=== PATIENT | female | born 1975 | race Caucasian/White ===

== ENCOUNTER 2019-05-16 09:30 | Outpatient (CLI) | payer BC, SELFPAY ==
--- NOTE | 2019-05-16 09:34 | MM_ITS ---
WS: [id number] BILATERAL DIGITAL DIAGNOSTIC MAMMOGRAM MAMMOGRAPHY WITH CAD CLINICAL INFORMATION: AXILLA LYMPHADENOPATHY HISTORY: Right breast lump. Left breast soreness. History of cyst. History of lymphadenopathy. COMPARISON: May 02, 2018 January 28, 2016 TECHNIQUE: Bilateral CC, MLO, and ML views. FINDINGS: The breasts are composed of extremely dense tissue, which can limit the detection of small underlying mass lesions. Palpable marker along the superior right breast near the axillary tail and chest wall. No mammographic abnormalities in this area. Ultrasound is pending. Focal asymmetric densities periareolar and upper outer left breast new compared to previous. Ultrasou nd is pending. A few lucent centered calcifications. ULTRASOUND BREAST BILATERAL TECHNIQUE: Ultrasound bilateral breast focused area of concern. CLINICAL INFORMATION: AXILLA LYMPHADENOPATHY COMPARISON: None. FINDINGS: Ultrasound breast 9:00 position area of concern. Right breast cyst in the area of concern with some i nternal debris measuring 1.0 x 0.7 x 1.1 CM. No lesions to target for biopsy. Ultrasound left breast at the 12:00 position. Numerous left breast cysts the largest measuring 2.1 x 1.2 x 1.4 CM. The next largest measuring 1.4 x 0.9 x 1.5 cm. MM/[place] [id number] BI-RADS: 2-Benign FOLLOW UP: 1 Year Follow-up Recommend return to annual screening mammography.
== END 2019-05-16 09:31 | disposition home or self-care (01) ==
LOC: RADSHAW 09:31
PROVIDERS: Family Provider Family Medicine; PCP Family Medicine; Visit Provider Family Medicine
DX: N60.01 Solitary cyst of right breast (principal); N60.02 Solitary cyst of left breast; R59.0 Localized enlarged lymph nodes
CPT/HCPCS: 76642; 77066

== ENCOUNTER 2020-07-04 10:44 | Outpatient (CLI) | payer OTHER, SELFPAY ==
--- NOTE | 2020-07-04 10:46 | MM_ITS ---
WS: [id number] BILATERAL SCREENING DIGITAL MAMMOGRAM WITH CAD HISTORY: SCREENING COMPARISON: 05/16/2019 and 05/02/2018 Bilateral CC and MLO views submitted. Computer aided detection analyzed. Breast composition: The breasts are extremely dense, which lowers the sensitivity of mammography. No suspicious masses, microcalcifications or architectural distortion. Very dense breast parenchyma. No nipple retraction. Benign calcifications in each breast. MM/[place] [id number] IMPRESSION: BI-RADS: 2-Benign FOLLOW UP: 1 Year Follow-up
== END 2020-07-04 10:45 | disposition home or self-care (01) ==
LOC: RADSHAW 10:45
PROVIDERS: PCP Family Medicine; Visit Provider Family Medicine
DX: Z12.31 Encounter for screening mammogram for malignant neoplasm of breast (principal)
CPT/HCPCS: 77067

== ENCOUNTER 2021-07-01 14:19 | Outpatient (CLI) | payer OTHER, SELFPAY ==
--- NOTE | 2021-07-01 14:56 | US_ITS ---
WS: [id number] ULTRASOUND ABDOMEN LIMITED CLINICAL INFORMATION: RUQ ABDOMINAL PAIN COMPARISON: None. FINDINGS: Liver Size: Normal. Craniocaudal length: 11.8 cm. Echogenicity: Normal. Surface nodularity: None. Mass (size and location): None. Bile ducts Intrahepatic ducts: Normal. Common bile duct diameter: 0.5 cm. Gallbladder Normal. Gallstones: None. Gallbladder sludge: None. Gallbladder wall thickening: None. Pericholecystic fluid: None. Sonographic Sesay sign: Absent. Pancreas Normal as visualized. Right kidney: Normal. Hydronephrosis: None. Size: 7.7 cm x 4.6 cm x 3.9 cm. Abdominal aorta and IVC Visualized portions are normal. Ascites: None. US/US abdomen limited [id number] IMPRESSION: 1. Normal liver. No intrahepatic biliary ductal dilatation. 2. Normal gallbladder. No cholelithiasis. 3. No hydronephrosis in RIGHT kidney.
== END 2021-07-01 14:20 | disposition home or self-care (01) ==
PROVIDERS: PCP Family Medicine; Visit Provider Family Medicine
DX: R10.11 Right upper quadrant pain (principal)
CPT/HCPCS: 76705

== ENCOUNTER 2021-11-12 11:29 | Outpatient (CLI) | payer OTHER, SELFPAY ==
--- NOTE | 2021-11-12 11:42 | MM_ITS ---
WS: [id number] Bilateral screening 3D tomosynthesis digital mammogram, 11/12/2021 Clinical Data: Screening mammogram Comparison: 07/04/2020, 05/16/2019, 05/02/2018, 01/28/2016. Findings: The breast parenchymal pattern shows extreme density. No spiculated masses or clustered calcification s are seen. There are no secondary signs of carcinoma. MM/[place] [id number] Impression: 1. Negative bilateral mammogram unchanged. 2. Recommend annual screening mammograms. BIRADS: 1-Negative FOLLOW UP: 1 Year Follow-up The CAD unloading checker was used.
== END 2021-11-12 11:30 | disposition home or self-care (01) ==
LOC: RAD 11:30
PROVIDERS: PCP Family Medicine; Visit Provider Family Medicine
DX: Z12.31 Encounter for screening mammogram for malignant neoplasm of breast (principal)
CPT/HCPCS: 77063; 77067

== ENCOUNTER 2022-12-10 10:15 | Outpatient (CLI) | payer OTHER, SELFPAY ==
--- NOTE | 2022-12-10 10:21 | MM_ITS ---
WS: [email or web address] SCREENING DIGITAL BREAST TOMOSYNTHESIS MAMMOGRAM WITH CAD HISTORY: SCREENING COMPARISON: 05/02/2018, 05/16/2019, 11/12/2021 Bilateral CC and MLO with tomosynthesis and synthetic mammography submitted. Computer aided detection analyzed. Breast composition: The breasts are extremely dense, which lowers the sensitivity of mammography. Inc reasing calcifications in the upper outer quadrant of the RIGHT breast. These calcifications are supe rimposed within dense fibroglandular tissue. The number of calcification. Of increased. No associated soft tissue mass or distortion. There are additional scattered benign calcifications within each sergei ast. IMPRESSION: MM/[place] [id number] BI-RADS: 0-Incomplete: Need additional imaging evaluation FOLLOW UP: Need Additional Imaging LEFT BREAST: Magnification views of suspicious calcification CC and MLO. Sachin Franks
== END 2022-12-10 10:16 | disposition home or self-care (01) ==
LOC: RAD 10:15
PROVIDERS: PCP Family Medicine; Visit Provider Family Medicine
DX: Z12.31 Encounter for screening mammogram for malignant neoplasm of breast (principal)
CPT/HCPCS: 77063; 77067

== ENCOUNTER 2022-12-28 12:56 | Outpatient (CLI) | payer OTHER, SELFPAY ==
--- NOTE | 2022-12-28 13:00 | MM_ITS ---
WS: [email or web address] ADDITIONAL VIEWS RIGHT MAMMOGRAM WITH DIGITAL BREAST TOMOSYNTHESIS. RIGHT BREAST ULTRASOUND HISTORY: Calcification on mammogram - Needing follow up imaging 3D COMPARISON: 12/10/2022 and 11/12/2021 and 07/04/2020 RIGHT MAMMOGRAM: Magnification views and true ML with digital breast tomosynthesis and SM. Cluster of calcifications persists in the upper outer quadrant of the RIGHT breast. There are several calcifications. Some of these have lucent centers and are benign. Due to the tight cluster and the p leomorphic appearance of some of the calcifications, biopsy should be obtained. There is no soft tiss ue mass or distortion associated with the calcifications. During the additional imaging there is a partially obscured 5 mm mass in the anterior RIGHT breast at approximately 10:00 which needs further evaluation by ultrasound. RIGHT BREAST ULTRASOUND 2-D and color Doppler imaging submitted. Ultrasound at 10:00 in the anterior breast demonstrates a hypoechoic mass without through transmissio n. This mass measures 5 x 4 x 5 mm. This is a very superficial mass and does correspond to the mammog raphic abnormality. This is not a simple cyst. IMPRESSION: MM/[place] [id number] BI-RADS: 4-Suspicious Finding-Biopsy Should Be Considered FOLLOW UP: Biopsy Recommended 1. Stereotactic biopsy recommended of the calcifications in the upper outer patrick drant of the RIGHT breast. 2. Ultrasound-guided biopsy recommended of the hypoechoic mass in the RIGHT sergei ast at 10:00. This may be a complex cyst but has not been described on prior ma mmograms.
--- NOTE | 2022-12-28 13:49 | US_ITS ---
WS: [email or web address] ADDITIONAL VIEWS RIGHT MAMMOGRAM WITH DIGITAL BREAST TOMOSYNTHESIS. RIGHT BREAST ULTRASOUND HISTORY: Calcification on mammogram - Needing follow up imaging 3D COMPARISON: 12/10/2022 and 11/12/2021 and 07/04/2020 RIGHT MAMMOGRAM: Magnification views and true ML with digital breast tomosynthesis and SM. Cluster of calcifications persists in the upper outer quadrant of the RIGHT breast. There are several calcifications. Some of these have lucent centers and are benign. Due to the tight cluster and the p leomorphic appearance of some of the calcifications, biopsy should be obtained. There is no soft tiss ue mass or distortion associated with the calcifications. During the additional imaging there is a partially obscured 5 mm mass in the anterior RIGHT breast at approximately 10:00 which needs further evaluation by ultrasound. RIGHT BREAST ULTRASOUND 2-D and color Doppler imaging submitted. Ultrasound at 10:00 in the anterior breast demonstrates a hypoechoic mass without through transmissio n. This mass measures 5 x 4 x 5 mm. This is a very superficial mass and does correspond to the mammog raphic abnormality. This is not a simple cyst. IMPRESSION: US/US breast RT limited* [id number] BI-RADS: 4-Suspicious Finding-Biopsy Should Be Considered FOLLOW UP: Biopsy Recommended 1. Stereotactic biopsy recommended of the calcifications in the upper outer patrick drant of the RIGHT breast. 2. Ultrasound-guided biopsy recommended of the hypoechoic mass in the RIGHT sergei ast at 10:00. This may be a complex cyst but has not been described on prior ma mmograms.
== END 2022-12-28 12:57 | disposition home or self-care (01) ==
LOC: RAD 12:57
PROVIDERS: PCP Family Medicine; Visit Provider Family Medicine
DX: R92.1 Mammographic calcification found on diagnostic imaging of breast (principal); N63.11 Unspecified lump in the right breast, upper outer quadrant
CPT/HCPCS: 76642; 77061; G0279

== ENCOUNTER 2023-01-05 13:20 | Outpatient (CLI) | payer OTHER, SELFPAY ==
--- NOTE | 2023-01-05 14:45 | US_ITS ---
WS: [email or web address] ULTRASOUND-GUIDED RIGHT BREAST ASPIRATION CLINICAL INFORMATION: Abnormal mammogram - right breast biopsy COMPARISON: 12/28/2022 FINDINGS: The procedure including risks, benefits, and complications were discussed with the patient who agreed to proceed. Using sterile technique patient was prepped and draped in the usual sterile fashion RIGH T. After 1% lidocaine utilizing real-time ultrasound guidance multiple passes were made into the comp alva cystic 5 mm lesion at the 10 o'clock position superficial in location. 3 passes were made utilizi ng an 18-gauge needle, 20-gauge and 22-gauge spinal needle. A small amount of slightly bloody fluid with milky or lipomatous debris was aspirated. Cystic lesion completely resolved. Aspirated fluid an d debris will be sent for cytology. No immediate complications. No biopsy marker was placed. Cytology demonstrates benign apocrine cells with macrophages, blood, proteinaceous debris. No maligna nt cells. IMPRESSION: 1. Uncomplicated ultrasound-guided RIGHT breast complex cyst aspiration. Cyst completely resolved. 2. Cytology demonstrates no malignant cells. US/[place] [id number] BI-RADS: 2-Benign FOLLOW UP: 1 Year Follow-up
== END 2023-01-05 13:21 | disposition home or self-care (01) ==
LOC: RAD 13:20
PROVIDERS: PCP Family Medicine; Visit Provider Family Medicine
DX: N60.01 Solitary cyst of right breast (principal); R92.8 Other abnormal and inconclusive findings on diagnostic imaging of breast
CPT/HCPCS: 19000; 76942; 88112; 88305

== ENCOUNTER 2023-01-11 12:29 | Outpatient (CLI) | payer OTHER, SELFPAY ==
--- NOTE | 2023-01-11 12:55 | MM_ITS ---
WS: [email or web address] STEREOTACTIC RIGHT BREAST BIOPSY WITH VACUUM ASSISTANCE HISTORY: RT BR CALCS COMPARISON: 12/28/2022, 05/16/2019 and 05/02/2018 Procedure, risks and complications were explained to the patient. Medications and prior radiographs a re reviewed. RIGHT breast calcifications are located. Calcifications localized to the upper outer quadrant. Calcif ications are targeted in the craniocaudal projection. The skin is cleansed with ChloraPrep and anesth etized with 1% buffered lidocaine. Deeper soft tissues anesthetized with a combination of lidocaine a nd epinephrine. Small dermatome is made. Needle advanced into the RIGHT breast. Stereotactic imaging reveals appropriate positioning adjacent calcifications. Multiple vacuum-assisted core biopsies are o btained. No complications were encountered. Post biopsy specimen radiograph reveals numerous calcifications. Biopsy clip is placed in the cavity. Post imaging reveals good placement of the clip. No migration. Pressures held for approximately 15 minutes. No bleeding. Dressing applied. Patient discharged with n o complications. There is no bleeding. With any questions or complications patient is to return. IMPRESSION: 1. Uncomplicated RIGHT breast stereotactic biopsy. 2. Specimen contains numerous calcifications. MM/[place] [id number] Pathology: Benign proliferative breast disease with multifocal areas of dystrop hic calcification. No malignancy. No atypia. RECOMMENDATION: Diagnostic RIGHT mammogram 6 months.
--- NOTE | 2023-01-11 12:55 | MM_ITS ---
WS: [email or web address] STEREOTACTIC RIGHT BREAST BIOPSY WITH VACUUM ASSISTANCE HISTORY: RT BR CALCS COMPARISON: 12/28/2022, 05/16/2019 and 05/02/2018 Procedure, risks and complications were explained to the patient. Medications and prior radiographs a re reviewed. RIGHT breast calcifications are located. Calcifications localized to the upper outer quadrant. Calcif ications are targeted in the craniocaudal projection. The skin is cleansed with ChloraPrep and anesth etized with 1% buffered lidocaine. Deeper soft tissues anesthetized with a combination of lidocaine a nd epinephrine. Small dermatome is made. Needle advanced into the RIGHT breast. Stereotactic imaging reveals appropriate positioning adjacent calcifications. Multiple vacuum-assisted core biopsies are o btained. No complications were encountered. Post biopsy specimen radiograph reveals numerous calcifications. Biopsy clip is placed in the cavity. Post imaging reveals good placement of the clip. No migration. Pressures held for approximately 15 minutes. No bleeding. Dressing applied. Patient discharged with n o complications. There is no bleeding. With any questions or complications patient is to return. IMPRESSION: 1. Uncomplicated RIGHT breast stereotactic biopsy. 2. Specimen contains numerous calcifications. MM/MM surgical specimen RT Pathology: Benign proliferative breast disease with multifocal areas of dystrop hic calcification. No malignancy. No atypia. RECOMMENDATION: Diagnostic RIGHT mammogram 6 months.
--- NOTE | 2023-01-11 12:58 | MM_ITS ---
WS: [email or web address] STEREOTACTIC RIGHT BREAST BIOPSY WITH VACUUM ASSISTANCE HISTORY: RT BR CALCS COMPARISON: 12/28/2022, 05/16/2019 and 05/02/2018 Procedure, risks and complications were explained to the patient. Medications and prior radiographs a re reviewed. RIGHT breast calcifications are located. Calcifications localized to the upper outer quadrant. Calcif ications are targeted in the craniocaudal projection. The skin is cleansed with ChloraPrep and anesth etized with 1% buffered lidocaine. Deeper soft tissues anesthetized with a combination of lidocaine a nd epinephrine. Small dermatome is made. Needle advanced into the RIGHT breast. Stereotactic imaging reveals appropriate positioning adjacent calcifications. Multiple vacuum-assisted core biopsies are o btained. No complications were encountered. Post biopsy specimen radiograph reveals numerous calcifications. Biopsy clip is placed in the cavity. Post imaging reveals good placement of the clip. No migration. Pressures held for approximately 15 minutes. No bleeding. Dressing applied. Patient discharged with n o complications. There is no bleeding. With any questions or complications patient is to return. IMPRESSION: 1. Uncomplicated RIGHT breast stereotactic biopsy. 2. Specimen contains numerous calcifications. MM/[place] [id number] Pathology: Benign proliferative breast disease with multifocal areas of dystrop hic calcification. No malignancy. No atypia. RECOMMENDATION: Diagnostic RIGHT mammogram 6 months.
== END 2023-01-11 12:30 | disposition home or self-care (01) ==
LOC: RAD 12:29
PROVIDERS: PCP Family Medicine; Visit Provider Family Medicine
DX: R92.1 Mammographic calcification found on diagnostic imaging of breast (principal)
CPT/HCPCS: 19081; 77061; 88305; G0279

== ENCOUNTER 2023-07-18 11:19 | Outpatient (CLI) | payer OTHER, SELFPAY ==
--- NOTE | 2023-07-18 11:25 | MM_ITS ---
WS: [id number] DIAGNOSTIC RIGHT DIGITAL TOMOSYNTHESIS MAMMOGRAPHY WITH CAD. HISTORY: Follow up on calcifications COMPARISON: 01/11/2023, 11/12/2021 and 12/10/2022 Technique: CC, MLO and ML views. Magnification views RIGHT CC. Breast composition: The breasts are extremely dense, which lowers the sensitivity of mammography. Bio psy clip and provide remaining calcifications in the upper outer quadrant of the RIGHT breast. The ca lcifications are reidentified but not significantly increased in size. These were benign dystrophic c alcifications as seen on biopsy pathology result. MM/[place] [id number] IMPRESSION: BI-RADS: 2-Benign FOLLOW UP: 1 Year Follow-up Return to annual screening mammography. Patient screening mammography should be in 6 months.
== END 2023-07-18 11:20 | disposition home or self-care (01) ==
LOC: RAD 11:19
PROVIDERS: PCP Family Medicine; Visit Provider Family Medicine
DX: R92.1 Mammographic calcification found on diagnostic imaging of breast (principal); R92.8 Other abnormal and inconclusive findings on diagnostic imaging of breast; R92.323 Mammographic fibroglandular density, bilateral breasts
CPT/HCPCS: 77061; G0279